=== PATIENT | male | born 1995 | race Asian ===

== ENCOUNTER 2024-11-22 23:04 | Emergency (ER) | payer MEDICAID ==
[~2024-11-22] VITALS: Ht 177.8 cm; Wt 78.0 kg
[2024-11-22] MEDS: ETOMIDATE 2MG/ML 10ML VIAL IV ONE (23:09)
[2024-11-22] MEDS: SUCCINYLCHOLINE CHLORIDE 200MG/10ML IV ONE (23:09)
[2024-11-22 23:15] VITALS: O2SAT 100
[2024-11-22] MEDS: MIDAZOLAM HCL 100 MG in SODIUM CHLORIDE 0.9% 100 ML IV PRN (23:15)
[2024-11-22] MEDS ORDERED: MIDAZOLAM HCL 100 MG in DEXT 5% WATER 80 ML IV ONE (23:15)
[2024-11-22] MEDS: PROPOFOL 10MG/ML 100ML 100 ML IV ONE (23:15)
[2024-11-22] MEDS ORDERED: ONDANSETRON HCL 4MG/2ML INJ IV ONE (23:30)
[2024-11-22 23:36] VITALS: PULSE 90; RESP 19; O2SAT 100
[2024-11-23 00:11] LABS: BASOPHILS % 0.7 % (0.0-2.0); EOSINOPHILS % 1.4 % (0.0-5.0); HEMATOCRIT. 41.4 % (42.0-52.0); HEMOGLOBIN. 14.2 g/dL (14.0-18.0); MEAN CORPUSCULAR HEMOGLOBIN 33.7 pg (28.0-32.0); MEAN CORPUSCULAR HGB CONC 34.4 g/dL (31.0-37.0); MEAN CORPUSCULAR VOLUME 97.7 fL (80.0-94.0); MEAN PLATELET VOLUME 7.9 fl (7.4-10.4); MONOCYTES % 6.8 % (2.0-8.0); NEUTROPHILS % 62.1 % (40.0-76.0); PLATELET 338 x1000/uL (130-400); RED BLOOD CELL COUNT 4.23 mill/uL (4.7-6.1); RED CELL DISTRIBUTION WIDTH 12.4 % (11.6-14.6); WHITE BLOOD COUNT 7.7 x1000/uL (4.5-11.0)
[2024-11-23 00:20] LABS: CHLORIDE 107 mEq/L (98-107); POTASSIUM 3.3 mEq/L (3.5-5.1); SODIUM 142 mEq/L (136-145)
[2024-11-23 00:21] LABS: CARBON DIOXIDE 23 mEq/L (21-32)
[2024-11-23 00:22] LABS: CALCIUM 9.1 mg/dL (8.7-10.4)
[2024-11-23 00:26] LABS: CREATININE 1.4 mg/dL (0.6-1.3); GLUCOSE 122 mg/dL (70-105); PROTHROMBIN TIME 10.8 sec (9.6-11.0)
[2024-11-23 00:27] LABS: TROPONIN I HIGH SENSITIVITY 6 ng/L (3.0-53); UREA NITROGEN BLOOD 11 mg/dL (9-23)
[2024-11-23 00:28] LABS: LACTIC ACID 3.2 mmol/L (0.4-2.0)
[2024-11-23 00:30] LABS: BG BASE EXCESS -5.7 mmol/L (-2.0-3.0); BG CARBOXYHEMOGLOBIN 0.3 % (0.5-1.5); BG DEOXYHEMOGLOBIN 0.3 % (0.0-5.0); BG FRACTION INSPIRED OXYGEN 100; BG HCO3 ACT 21.7 mmol/L (21.0-28.0); BG METHEMOGLOBIN 0.1 % (0.5-1.5); BG OXYGEN SATURATION 99.7 % (94.0-98.0); BG OXYHEMOGLOBIN 99.3 % (94.0-98.0); BG PCO2 50.3 mmHg (35.0-48.0); BG PH 7.253 (7.350-7.450); BG PO2 333.2 mmHg (83.0-108.0); BG SAMPLE SITE RIGHT RADIAL; BG TOTAL HEMOGLOBIN 13.4 g/dL (13.5-17.5); BG VENT MODE VENT - AC
[2024-11-23] MEDS ORDERED: NICARDIPINE 40MG/200ML PREMIX 200 ML IV PRN (00:30)
[2024-11-23 00:36] LABS: ETHANOL BLOOD 308 mg/dL (<10)
[2024-11-23 01:14] VITALS: PULSE 82; RESP 22; O2SAT 100
[2024-11-23 02:03] VITALS: PULSE 72; RESP 20; O2SAT 100
[2024-11-23] MEDS ORDERED: PROPOFOL 10MG/ML 100ML 100 ML IV PRN (02:15)
[2024-11-23] MEDS: LEVETIRACETAM 500MG PREMIX 100 ML IV ONE (02:32)
[2024-11-23 03:00] VITALS: BP 119/78; PULSE 67; RESP 20; TEMP 36.1; O2SAT 100
[2024-11-23] MEDS ORDERED: IOHEXOL-350 100 ML BOTTLE ONE (06:44)
== END 2024-11-23 03:35 | disposition short-term general hospital (02) ==
LOC: EDBD 23:04 → ER 23:04
DX: S06.5XAA Traumatic subdural hemorrhage with loss of consciousness status unknown, initial encounter (principal); F10.129 Alcohol abuse with intoxication, unspecified; R07.9 Chest pain, unspecified; R79.89 Other specified abnormal findings of blood chemistry; Z79.899 Other long term (current) drug therapy; Z46.59 Encounter for fitting and adjustment of other gastrointestinal appliance and device; Z46.82 Encounter for fitting and adjustment of non-vascular catheter; W19.XXXA Unspecified fall, initial encounter; Y93.89 Activity, other specified; Y92.89 Other specified places as the place of occurrence of the external cause; Y99.8 Other external cause status; Y90.8 Blood alcohol level of 240 mg/100 ml or more
CPT/HCPCS: 80048; 80320; 83880; 83605; 83690; 85025; 85610; 85730; 86850; 86900; 86901; 84484; 36415; 71045; 70496; 70498; 70450; 31500; 94002; 93005; 96365; 99291; 87040; 82805; 82375; 36600; J2704 ×2; Q9967; Z7610; J1953; J2250; J7060; G0480